=== PATIENT | female | born 1975 | race Caucasian/White ===

== ENCOUNTER → 2016-10-17 | Outpatient (CLI) | payer BC ==
--- NOTE | 2016-10-17 10:47 | RADRPT ---
PROCEDURE: Bilateral knee x-ray CLINICAL INDICATION: PAIN TECHNIQUE: AP weightbearing, PA flexion, lateral and patellar views were obtained of each knee. COMPARISON: None FINDINGS: There is no evidence of acute fractures, dislocations or patellar subluxation. The bony mineralizat ion is normal. There are no focal bony blastic or lytic lesions. There is no evidence of right or left knee joint effusions. The soft tissues are unremarkable. IMPRESSION: Negative bilateral knee series. RPTAT:AAJJ Physician Brad Date Time Electronically viewed and signed by Lauro Royal Physician on 10/17/2016 10:47 BM/
== END | disposition home or self-care (01) ==
LOC: HKI 11:32
PROVIDERS: ATTEND Orthopaedic Surgery
DX: M25.561 Pain in right knee (principal); M25.562 Pain in left knee
CPT/HCPCS: 73564; Z7500; G0463